=== PATIENT | female | born 1960 | race Hispanic/Latino ===

== ENCOUNTER → 2019-07-15 | Outpatient (CLI) | payer BC | END | disposition home or self-care (01) | LOC: RAH 09:01 | PROVIDERS: ATTEND Family Medicine | DX: N60.01 Solitary cyst of right breast (principal); N63.11 Unspecified lump in the right breast, upper outer quadrant | CPT/HCPCS: 76641; 77065 ==

== ENCOUNTER → 2019-07-28 | Outpatient (CLI) | payer BC ==
[2019-07-28 12:18] LABS: INR 0.95 (0.85-1.15); PARTIAL THROMBOPLASTIN TIME 26.2 SEC (26.3-35.5)
--- NOTE | 2019-07-28 12:45 | NUR ---
U/S GD RT BREAST BX PROCEDURE PERFORMED BY DR Yazmin MCKENZIE. PUNCTURE SITE RT BREAST AT 10 O'CLOCK AND PATIENT TOLERATED PROCEDURE WELL. SPECIMEN X 3 COLLECTED AND SENT TO LAB. TISSUE MARKER DEPLOYED TO BX SITE. END OF PROCEDURE AT 1210. BIOPSY NEEDLE REMOVED AND DRESSING APPLIED. NO BLEEDING NOTED. DISCHARGE INSTRUCTIONS GIVEN TO PATIENT AND VERBALIZED UNDERSTANDING. DISCHARGED VIA AMBULATION AT 1245. AWAKE AND ALERT WITH NO C/ PAIN.
== END ==
LOC: DAH 09:26 → EDSTATUS 10:00 → DAH 14:44
PROVIDERS: ATTEND Family Medicine
DX: N63.10 Unspecified lump in the right breast, unspecified quadrant (principal); N64.1 Fat necrosis of breast; Z88.8 Allergy status to other drugs, medicaments and biological substances
CPT/HCPCS: 19083; 36415; 85610; 85730; 88305

== ENCOUNTER → 2023-06-27 | Outpatient (CLI) | payer OTHER | END | disposition home or self-care (01) | LOC: RAH 09:27 | PROVIDERS: ATTEND Family Medicine | DX: Z12.31 Encounter for screening mammogram for malignant neoplasm of breast (principal); Z12.39 Encounter for other screening for malignant neoplasm of breast | CPT/HCPCS: 77067 ==